=== PATIENT | male | born 1990 | race Caucasian/White ===

== ENCOUNTER 2022-09-24 07:59 | Observation (INO) ==
--- NOTE | 2022-09-24 08:32 | Emergency Department Note ---
Impression & Plan Fracture of finger, middle phalanx, right, open Consultation was obtained from the on-call orthopedist due to the laceration and proximity to the transverse fracture of the middle phalanx. He recommended further exploration. This was performed. It appears to communicate with the fracture site. IV site was established and the patient was given Rocephin 1 g IV, corresponding to his weight. He did have a few sips of coffee this morning, but had no food. He will be taken to the operating room for irrigation and d ebridement as well as pinning. ED Provider Note Chief complaint: Right little finger laceration HPI: This 32-year-old male presents for evaluation of a laceration on his right little finger. He works for [employer] at the [employer]. The patient was releasing a tailgate on a truck that was full of trash. He states the chain holding the tailgate trapped his finger, crushing it, and causing a laceration over the dorsum of the PIP joint. He thinks he felt his finger snap and was visibly deformed. Bleeding was controlled with pressure. He denies any numbness or tingling. There is mild loss of motion. No other complaints. Tetanus is believed to be up-to-date. Pain is 5/10. Hmate-zilm-uhelrbrg. He denies involvement of any other fingers. REVIEW OF SYSTEM: HEENT: No dizziness, visual problems, hearing loss, or tinnitus. There is no difficulty swallowing and no oral lesions are present. LYMPH: No adenopathy. PULMONARY: No cough, shortness of breath, sputum production or hemoptysis. CARDIOVASCULAR: No chest pain, palpitations, shortness of breath or peripheral edema. GASTROINTESTINAL: No diarrhea, constipation, nausea, vomiting, or abdominal pain. GENITOURINARY: No dysuria, frequency, urgency or nocturia. NEUROLOGIC: No weakness, muscle tenderness, epilepsy or history of neurological problems. MUSCULOSKELETAL: No history of joint tenderness/swelling. No history of arthritis or arthralgias. SKIN: No rashes or lesions. PSYCHIATRIC: No history of depression or mental illness. ENDOCRINE: No history of diabetes, thyroid disorders, or abnormal hair growth. Physical Exam: Vitals: Temperature 36.8 respirations 16 pulse 85 O2 sat 99% on room air BP 146/88 General: Well-developed, well-nourished, young white male, in no acute distress. Obvious discomfort. He is sitting on the bed. Alert and oriented. Skin: Warm and dry with good turgor. No rashes. No ecchymosis or erythema. The patient is not diaphoretic. No abrasions. The patient has a 1 cm laceration present over the dorsum of the finger just distal of his PIP joint of the little finger. Musculoskeletal: The patient has slight edema of the little finger. No appreciable deviation or deformity. He has intact motor function to the MCP and PIP joints for flexion and extension. Strength is 5/5 for resisted extension. Intact abduction and adduction. He is able to make almost a full fist. No appreciable malrotation. There is pain with palpation over the middle phalanx. Crepitus is palpable. No pain with palpation of the MCP or DIP joints. No pain with palpation of the other fingers. Neurologic: Gross sensation is intact across the little finger by soft touch. Impression: Right little finger middle phalanx open fracture with 1 cm laceratio n Procedure: Informed oral consent was obtained for exploration. The little finger was prepped with Betadine and draped with a sterile towel. Area was anesthetized using 4 mL 1% plain buffered lidocaine in a digital block. Finger tourniquet was applied and was left in place for approximately 20 minutes. Thorough inspection was performed. Assistance of the orthopedic PA was used along with skin hooks to further evaluate the wound. He was found to have a penetrating tunnel down to the fracture site. Wound was irrigated copiously using Betadine diluted with normal sterile saline under jet spray lavage. Total of 60 mL was used. Wound was covered with sterile gauze. Patient will be taken to the operating room for further irrigation by orthopedics. Please see Dr. Chang's note for final management. Past Med/Surg History Medical History (Updated 09/24/22 @ 20:22 by Dani Linton PA-C) No chronic diseases present Surgical History (Updated 09/24/22 @ 20:12 by Dani Linton PA-C) H/O vasectomy Family History Other Family history non-contributory Social History Smoking Status: Current every day smoker Tobacco Type: Cigarettes Do You Dip or Chew Tobacco: No; Tobacco Cessation Education Requested by Patient: No Hx Alcohol Use: Yes Alcohol type: beer and hard liquor Hx Substance Use: No Preferred Language: Bangladeshi Communication Ability: Effective Stabilizing Machine Operator Required: No Beliefs That Will Affect Care: None Current Living Situation: Spouse and Other Current Living Situation Comment: kids and father Other Information That Helps Us Care for You: No Feels Safe at Home: Yes Safety Concerns: Feels Safe At This Time Assistive Devices: None Allergies Allergies Allergy/AdvReac Type Severity Reaction Status Date / Time No Known Allergies Allergy Verified 06/07/22 23:01 Home Meds Home Medications Medication Instructions Recorded Confirmed No Known Home Medications 09/24/22 09/24/22 Results & Data (ED) Vital Signs Vital Signs - 24 hr 09/24/22 08:03 09/24/22 09:00 09/24/22 10:47 Temperature 36.8 C Temperature Source Temporal Artery Scan Pulse Rate 85 Pulse Rate [Apical] 71 Pulse Rhythm [Apical] Pulse Strength [Apical] Respiratory Rate 16 16 Respiratory Effort / Characteristics Non-Labored Respiratory Depth Normal Respiratory Pattern Blood Pressure 146/88 H Blood Pressure [Left Arm] 131/95 Blood Pressure Mean 107 Blood Pressure Mean [Left Arm] 107 Blood Pressure Position [Left Arm] Pulse Oximetry 99 96 99 Oxygen Delivery Method Room Air Oxygen Flow Rate Sepsis Recent Fever Within 48 Hours No Sepsis New/Unexplained Change in Mental Status No Sepsis Action Taken by Nursing No Action Required 09/24/22 13:00 Temperature 36 C L Temperature Source Temporal Artery Scan Pulse Rate Pulse Rate [Apical] 112 H Pulse Rhythm [Apical] Regular Pulse Strength [Apical] Normal Respiratory Rate 19 Respiratory Effort / Characteristics Non-Labored Spontaneous Respiratory Depth Normal Respiratory Pattern Regular Blood Pressure Blood Pressure [Left Arm] 153/91 H Blood Pressure Mean Blood Pressure Mean [Left Arm] 111 Blood Pressure Position [Left Arm] Semi-fowlers Pulse Oximetry 100 Oxygen Delivery Method Oxymask Oxygen Flow Rate 4 Sepsis Recent Fever Within 48 Hours Sepsis New/Unexplained Change in Mental Status Sepsis Action Taken by Nursing Administered Medications Acetaminophen (Acetaminophen 500 Mg Tab) 1,000 mg PO Q8 JOVANI Stop: 10/24/22 13:59 Last Admin: 09/24/22 15:28 Dose: 1,000 mg Documented By: [facility] Sodium Chloride (Nss 1000ml) 1,000 mls @ 100 mls/hr IV .Q10H JOVANI Stop: 09/25/22 06:00 Last Admin: 09/24/22 15:29 Dose: 100 mls/hr Documented By: ALIA Cefazolin Sodium (Ancef 1000mg) 1,000 mg in 7.5 mls @ 2.5 mls/min IV Q8H JOVANI Stop: 10/01/22 17:59 Last Admin: 09/24/22 18:00 Dose: 2.5 mls/min Documented By: ALIA Nicotine (Nicotine 14 Mg/24 Hr Patch) 14 mg TD QAM JOVANI Stop: 10/24/22 13:14 Last Admin: 09/24/22 15:30 Dose: Not Given Documented By: ALIA Discontinued Medications Bupivacaine HCl (Bupivacaine 0.5 % 5 Mg/1 Ml Mpf 30ml Vial) Confirm Administered Dose 30 ml .ROUTE .STK-MED ONE Stop: 09/24/22 11:08 Last Admin: 09/24/22 12:04 Dose: Not Given Documented By: CRESENCIO Bupivacaine HCl/Epinephrine Bitart (Bupivacaine/Epinephrine 0.5% Mpf 1:200,000 30 Ml Vial) Confirm Administered Dose 30 ml .ROUTE .STK-MED ONE Stop: 09/24/22 11:26 Last Admin: 09/24/22 12:34 Dose: 8 ml Documented By: LENIN Cefazolin Sodium (Cefazolin 330 Mg/Ml 1 Gm Vial) Confirm Administered Dose 990 mg .ROUTE .STK-MED ONE Stop: 09/24/22 11:09 Last Admin: 09/24/22 12:04 Dose: Not Given Documented By: CRESENCIO Ceftriaxone Sodium 1,000 mg/ (Dextrose) 50 mls @ 100 mls/hr IV NOW STA Stop: 09/24/22 09:05 Last Infusion: 09/24/22 10:37 Dose: 0 mls/hr Documented By: Admin: 09/24/22 10:04 Dose: 100 mls/hr Documented By: MICHEAL Lidocaine HCl (Xylocaine 1%/Sod Bicarb 20 Ml Vial) 20 ml INFIL NOW ONE Stop: 09/24/22 08:37 Last Admin: 09/24/22 08:58 Dose: 20 ml Documented By: MICHEAL Lidocaine HCl (Lidocaine 1% Local 20 Ml Vial) Confirm Administered Dose 1 ml .ROUTE .STK-MED ONE Stop: 09/24/22 11:09 Last Admin: 09/24/22 12:04 Dose: Not Given Documented By: [facility] Imaging Data Radiologist's Impression: Finger X-Ray 09/24/22 00:00 INTRAOPERATIVE RADIOGRAPHS CLINICAL HISTORY: Pinning of the right fifth finger. Fluoro time: 51 seconds. Ka,r: 0.46 mGy FINDINGS: 4 spot views of the right fifth finger are correlated with radiographs performed the same day 09/24/2022. Again seen is a horizontal fracture through the mid shaft of the fifth middle phalanx. 2 pins are placed transfixing the fracture with tenriism of near-anatomic alignment. IMPRESSION: Intraoperative images from pinning of the fifth middle phalanx as above. Electronically signed by: Randal Kelly M.D. 09/24/2022 1:20 PM Finger X-Ray 09/24/22 08:17 RIGHT FIFTH FINGER 3 VIEWS CLINICAL HISTORY: Fifth finger injury. FINDINGS: 3 views of the right fifth finger are obtained. No prior studies are available for comparison at the time of dictation. The skeletal structures are well mineralized. There is a mildly displaced horizontal fracture through the midshaft of the fifth middle phalanx. Fragments are offset by up to 2 mm. Overlying soft tissue edema is noted. Fracture does not extend to an articular surface. No additional fracture is seen. The fifth metacarpophalangeal and interphalangeal joints are maintained. IMPRESSION: Fifth middle phalangeal fracture as above. Electronically signed by: Randal Kelly M.D. 09/24/2022 8:37 AM Discharge Plan Visit Data Chief Complaint: Finger Pain Stated Complaint: FINGER LAC ED Provider: Miguelito Vann ED Midlevel Provider: Dani Linton Discharge Problem: Fracture of finger, middle phalanx, right, open Patient Disposition: Admitted As Inpatient Discharge Instructions Interventions: ED Discharge Assessment Last Done: 09/24/22 11:05
[2022-09-24] MEDS ORDERED: XYLOCAINE 1%/SOD BICARB 20 ML VIAL INFIL ONE (08:36)
[2022-09-24] MEDS ORDERED: cefTRIAXone SODIUM 1,000 MG in DEXTROSE 5% AD-VAN 50 ML IV STA (08:36)
--- NOTE | 2022-09-24 08:39 | XRay Report ---
RIGHT FIFTH FINGER 3 VIEWS CLINICAL HISTORY: Fifth finger injury. FINDINGS: 3 views of the right fifth finger are obtained. No prior studies are available for comparis on at the time of dictation. The skeletal structures are well mineralized. There is a mildly displace d horizontal fracture through the midshaft of the fifth middle phalanx. Fragments are offset by up to 2 mm. Overlying soft tissue edema is noted. Fracture does not extend to an articular surface. No add itional fracture is seen. The fifth metacarpophalangeal and interphalangeal joints are maintained. IMPRESSION: Fifth middle phalangeal fracture as above. Electronically signed by: Randal Kelly M.D. 09/24/2022 8:37 AM
--- NOTE | 2022-09-24 10:08 | History & Physical Report ---
Date of Service September 24, 2022 Assessment & Plan (1) Fracture of finger, middle phalanx, right, open: Plan: Discussed and reviewed exam findings with patient and . Patient has an open fracture of the right fifth middle phalanx that reveals an open pathway down to the bone. Patient was examined and counseled on options with Dr. Chang. He discussed surgical intervention versus conservative. Risk were discussed not limited to including infection, bleeding, malunion nonunion, hardware failure, neurovascular damage, wound issues, scarring limitation with motion, embolism, DVT. Due to high risk of infection patient mutually agreed to be taken to the OR for irrigation debride pin right little finger fracture. He has received 1 gram on Rocephin. Patient is to remain n.p.o. I will order a EKG due to history of Gwemw-Jguuuolec-Uzpag syndrome. He was advised to be admitted on our services for observation and most likely being discharged the next day. He will have restrictions for work. He and his verbalized understanding and are in agreement plan. Present on Admission?: Yes History of Present Illness Chief Complaint: laceration to the 5th right digit Primary Care Provider: Rachelle Marley PA-C Patient is a 32-year-old male who is right-hand dominant. He was seen in the ER bedside after being consulted by Dani Linton PA-C. He is seen in the ED for a laceration to the dorsal fifth digit. He explains he was working, [employer], this morning picking up trash. When he placed the tailgate of the truck it came down and smacked the finger. He had a cut and limitations with his range of motion which prompted him to be seen today. He denies any paresthesia or tingling in the finger. He reports that temperature is normal. He had imaging done of the finger that revealed a fracture of the PIP that was displaced. He was examined by Dani Linton PA-C as well as myself and Dr. Mead where it was found that the tendon is intact however there is an open pathway down to the bone. It was discussed surgical options as well as conservative treatment due to high risk of infection due to open fracture patient will be taken to the OR for irrigation debride pin right little finger fracture. 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 He denies any cardiac symptoms or issues since the event. He denies any chest pain, dizziness or shortness of breath. He is up-to-date on tetanus shot and was started on IV antibiotics while in the ED. He denies any history of MRSA or latex allergies. He denies any history of DVT, PE, bleeding disorder. He has the history of a vasectomy, ear surgery. Denies any history of issues with anesthesia. Allergies Allergy/AdvReac Type Severity Reaction Status Date / Time No Known Allergies Allergy Verified 06/07/22 23:01 Home Medications Medication Instructions Recorded Confirmed Type acetaminophen 500 mg tablet 1,000 mg PO DIRECTED PRN 06/07/22 06/07/22 History (Tylenol Extra Strength) PAIN/FEVER famotidine 20 mg tablet 20 mg PO BID #20 tabs 06/07/22 Rx asnwszdiavenr-XF-laohcxgztubuv-guaifen 2 tab PO DIRECTED PRN COLD/FLU 06/07/22 06/07/22 History 5 mg-10 mg-325 mg-200 mg tablet SYMPTOMS (Cold and Flu Severe) sucralfate 100 mg/mL oral 10 ml PO QID #420 mL 06/07/22 Rx suspension (Carafate) Past Med/Surg History Medical History No chronic diseases present Family History Other Family history non-contributory Social History Smoking Status: Never smoker Tobacco Type: Cigarettes Preferred Language: Persian Feels Safe at Home: Yes Review of Systems Review of Systems: All systems reviewed & are unremarkable except as noted in HPI & below Physical Exam Constitutional: well developed and well nourished Eyes: EOM intact bilaterally Respiratory: normal respiratory effort Musculoskeletal: Right fifth digit open laceration over the dorsal aspect over the middle phalanx. Sensation is intact in temperature color is normal. Digital nerve block was performed by Dani Linton. Laceration was explored utilizing aseptic technique. Wound was flushed with Betadine tendons appear to be intact however there is an open pathway down to the fracture. Bone is visible. He is limited with range of motion. He is able to flex and extend all other digits. His wrist range of motion is within normal limits bilaterally left upper extremity he is able to fully flex and extend all digits. Elbow range of motion is normal bilaterally. Radial pulse 3+. Right upper extremity is neurovascular intact. Neurologic: Sensation is intact limited range of motion of the fifth digit on right Psychiatric: Orientation: alert and oriented x 3 Apperance: appropriately dressed and appropriately groomed Eye Contact: good eye contact Results & Data Results & Data Vital Signs (Past 12 Hours) Vital Signs Temp Pulse Resp BP Pulse Ox O2 Del Method 09/24/22 09:00 96 09/24/22 08:03 36.8 C 85 16 146/88 H 99 Room Air Diagnostic Findings Finger X-Ray 09/24/22 08:17 RIGHT FIFTH FINGER 3 VIEWS CLINICAL HISTORY: Fifth finger injury. FINDINGS: 3 views of the right fifth finger are obtained. No prior studies are available for comparison at the time of dictation. The skeletal structures are well mineralized. There is a mildly displaced horizontal fracture through the midshaft of the fifth middle phalanx. Fragments are offset by up to 2 mm. Overlying soft tissue edema is noted. Fracture does not extend to an articular surface. No additional fracture is seen. The fifth metacarpophalangeal and interphalangeal joints are maintained. IMPRESSION: Fifth middle phalangeal fracture as above. Electronically signed by: Randal Kelly M.D. 09/24/2022 8:37 AM
--- NOTE | 2022-09-24 10:13 | History and Physical Report ---
DATE OF SERVICE: 09/24/2022. HISTORY OF PRESENT ILLNESS: Reece is 32. He injured his finger earlier this morning while cleaning up after the [employer] game. Had his finger pinched between a chain and a tailgate. The right bradford le finger. He sustained a laceration. The finger was not deformed. Because of his injury, he came in for further evaluation. He was wearing a glove. No prior history of right little finger injuries of any significance. He has had some prior surgeries without difficulty. No significant medical problems. He has no deepika rgies. Radiographs show a transverse fracture in the midshaft region of the middle phalanx with mild displac ement. On exam, capillary refill and sensation are intact. He has full finger extension and has intact IP j oint, PIP joint extension. He can flex about 2/3-3/4 of composite digital flexion with intact fractu re stability and no rotational abnormality. There is no rotational abnormality with passive range of motion of the wrist using the tenodesis effect. The nail beds are parallel in extension and in flex ion. There is a skin flap with some bleeding. The skin flap was elevated. This is just over the PIP join t. Under the flap is a 5-7 mm transverse laceration, it goes through the skin. There is no visible bone or tendon. IMPRESSION: Right hand little finger middle phalanx fracture with laceration. PLAN: Findings are discussed. I discussed with him the situation. There are various possibilities. The finger could have impinged and cut. I doubt given the findings that the bone actually protrude d through the skin. The fracture itself does not require any operative intervention. The laceration is concerning for the potential of an open fracture. I discussed with him the pros and cons of diff erent treatment options. There is a risk of infection. Discussed treatment in the ER versus OR. Dis cussed pinning, which I do not think is necessary at this time given the findings. It is a stable fr acture, which is well aligned. I think it is reasonable given the findings that this will be irrigat ed in the Emergency Room. He has gotten antibiotics, Rocephin. He will be placed on oral antibiotic s as an outpatient. We will follow up with him in the office. If any signs or symptoms of infection develop, he will return to the ER or contact my office. He will be splinted. Tetanus is up to date . Thorough washout of the wound will be performed and the lacerated area will be evaluated by the ER personnel. He will not be able to work. Job ID: [id number]
[2022-09-24] MEDS ORDERED: ePHEDrine sulfate 50 MG/ML AMP IV PRN (10:52)
[2022-09-24] MEDS ORDERED: ONDANSETRON INJ 2 MG/ML 2 ML VIAL IV PRN ×2 (10:52→13:03)
[2022-09-24] MEDS ORDERED: HYDROmorphone INJ 2 MG/ML SYR/VIAL IV PRN (10:52)
[2022-09-24] MEDS ORDERED: ATROPINE SULFATE 0.1 MG/ML 10ML SYR IV PRN (10:52)
--- NOTE | 2022-09-24 10:53 | Anesthesiology Consultation ---
Date of Service September 24, 2022 Assessment & Plan Chart Review Chart Review: Acceptable Risk for Surgery Consults Requested none ASA ASA2 Proposed Anesthesia Anesthesia Type: General Risk / Benefits Reviewed With: PT / POA / Parent / Guardian, Accepts Plan and Informed Consent Obtained History Surgery Operation Date: 09/24/22 11:00 Proposed Procedures p Incision and Drainage Extremity(Right) - Charles Chang MD Height/Weight Weight: 66.1 kg Allergies Allergy/AdvReac Type Severity Reaction Status Date / Time No Known Allergies Allergy Verified 06/07/22 23:01 Medications Home Medications Medication Instructions Recorded Confirmed Last Taken No Known Home Medications 09/24/22 09/24/22 Unknown NPO Date Last Intake of Fluids: 09/24/22 Time Last Intake of Fluids: 07:45 Last Intake of Fluids Comment: water and coffee Date Last Intake of Solids: 09/23/22 Time Last Intake of Solids: 20:00 Past Medical History Medical History No chronic diseases present Exercise / Class Metabolic Activity II 4-5 Yardwork/Stairs/Walk up hill Past Family History Family History Other Family history non-contributory Past Anesthesia History No Hx of Anesthesia Complications and No Family Hx of Anesthesia Complications History of PONV No Hx of PONV and No Hx of Motion Sickness Social History Smoking Status: Never smoker Physical Exam Vital Signs Last Vital Signs Temp 36.8 C 09/24/22 08:03 Pulse 71 09/24/22 10:47 Resp 16 09/24/22 10:47 BP 131/95 09/24/22 10:47 Pulse Ox 99 09/24/22 10:47 O2 Del Method Room Air 09/24/22 08:03 Constitutional no acute distress ENMT Thyromental Distance: > or= 3.5 Finger Breadths Mallampati Class: II Neck normal visual inspection Respiratory normal respiratory effort; no respiratory distress Auscultation: lungs clear to auscultation bilaterally Cardiovascular Rate/Rhythm: regular rate and regular rhythm Heart Sounds: no murmur Psychiatric Orientation: alert and oriented x 3
[2022-09-24] MEDS ORDERED: MIDAZOLAM HCL 1 MG/ML 2ML VIAL ONE (10:56)
[2022-09-24] MEDS ORDERED: LIDOCAINE 2% MPF LOCAL 5 ML VIAL ONE (10:56)
[2022-09-24] MEDS ORDERED: DEXAMETHASONE SOD INJ 4 MG/ML VIAL ONE (10:56)
[2022-09-24] MEDS ORDERED: fentaNYL citrate PF 100 MCG/2 ML VIAL ONE ×2 (10:56→12:33)
[2022-09-24] MEDS ORDERED: ONDANSETRON INJ 2 MG/ML 2 ML VIAL ONE (10:56)
[2022-09-24] MEDS ORDERED: BUPIVACAINE 0.5 % 5 MG/1 ML MPF 30ML VIAL ONE (11:07)
[2022-09-24] MEDS ORDERED: ceFAZolin 330 MG/ML 1 GM VIAL ONE (11:08)
[2022-09-24] MEDS ORDERED: LIDOCAINE 1% LOCAL 20 ML VIAL ONE (11:08)
[2022-09-24] MEDS ORDERED: BUPIVACAINE/EPINEPHRINE 0.5% MPF 1:200,000 30 ML VIAL ONE (11:25)
--- NOTE | 2022-09-24 12:52 | Operative Report ---
Post Operative Report Pre & Post Diagnosis Operation Date: 09/24/22 11:00 Pre-Op Diagnosis: Right hand little finger middle phalanx fracture with laceration Post-Op Diagnosis: Right hand little finger middle phalanx Grade 1 open fracture I identified the patient and participated in the time-out.: Yes Procedure Operation Date: 09/24/22 11:00 Actual Procedures p Irrigation and Debridement and Pinning Right Little Finger middle phalanx fracture(Right) - Charles Chang MD Surgeon Charles Chang MD Agricultural Pilot Rocio Dhillon physicians educational program assistant no resident or fellow available Estimated Blood Loss 1 Findings Consistent with Post-Op Diagnosis Specimens None Anesthesia Type General Regional Complications none Disposition Accompanied Patient To Recovery: No Disposition: Recovery Room Indications jaja is 32. Injured right little finger cleaning up after [employer] game today. Fracture finger with laceration. Initially I thought that this was not an open fracture. However upon evaluating in the emergency room and exploring the wound it was discovered that the laceration did communicate directly with the fracture site. Therefore operative intervention I&D and pinning was recommended he agreed to proceed. He received a preop dose of Rocephin in the ER and got a preop dose of IV antibiotics here in the OR. Description of Procedure Informed consent. Patient identified. He identified the operative site as the right little finger. I marked with my initials. Preop surgical timeout performed. Preop dose of IV antibiotics given. He was taken to the OR positioned supine on the OR table. Right arm on hand table. Tourniquet on right arm. Not inflated during the case. The arm was prescribed prepped and draped in usual sterile fashion with Betadine. There was a 1 cm transverse laceration overlying the middle phalanx just distal to the PIP joint. DVT prophylaxis not indicated. Prior to starting the procedure 1% lidocaine with epinephrine and half percent plain Marcaine were injected for a digital and field block. Total 8 cc used. Fluoroscopic guidance was utilized throughout the case. The laceration was extended distally 2 cm approximately 1 cm. Full-thickness skin flaps were elevated. The central slip was intact. The lateral bands and the triangular ligament were identified. The tissue between the lateral bands was absent and there was direct communication down to the level of the fracture which was not displaced significantly. The lateral bands were gently retracted and the fracture site was exposed dorsally. There is no communication medially or laterally to the lateral bands. The fracture site was clean and irrigated with 500 cc of sterile saline. The fracture was then rotated and distracted and placed into anatomical alignment confirmed fluoroscopically. I then inserted 2.035 inch K wires. 1 from proximal ulnar to radial distal and another from distal ulnar to proximal radial. They were confirmed to be within the bone and across the fracture site and biplanar fluoroscopy. The fracture remained anatomically aligned and was stable without any rotational abnormality. The pins were cut short outside the skin and Jurgan balls were applied. The wound was again irrigated and the skin was then closed with interrupted 4-0 nylon sutures. The finger was cleaned with wet and dry sponges and a soft sterile dressing was applied Xeroform 4 x 4 soft wrap followed by an AlumaFoam splint. Patient was wake from anesthesia difficulty taken to the cover room in stable condition. There were no specimens or complications. Counts were correct and blood loss is estimated to be 1 cc. At the conclusion of the operation spoke to patient's informed her of my findings postop instructions were given. Patient is unable to work. He was counseled to stop smoking. He will be admitted for 24 hours of IV antibiotics. Ancef 1 g IV every 8. Elevate and ice. I attest to the content of the Intraoperative Record and any orders documented therein. Any exceptions are noted below.
[2022-09-24] MEDS ORDERED: MAGNESIUM HYDROXIDE SUSP 30 ML UDC PO PRN (13:03)
[2022-09-24] MEDS ORDERED: traMADol HCL 50 MG TABLET PO PRN (13:03)
[2022-09-24] MEDS ORDERED: bisacodyL 10 MG SUPP PR PRN (13:03)
[2022-09-24] MEDS ORDERED: oxyCODONE HCL IR 5 MG TAB (IMMEDIATE RELEASE) PO PRN (13:03)
[2022-09-24] MEDS ORDERED: NALOXONE HCL 0.4 MG/1 ML VIAL/CARP IV PRN (13:03)
[2022-09-24] MEDS ORDERED: METOCLOPRAMIDE HCL INJ 5 MG/ML 2 ML VIAL IV PRN (13:03)
[2022-09-24] MEDS ORDERED: SODIUM CHLORIDE 0.9% 1000ML 1,000 ML IV SCH (13:15)
--- NOTE | 2022-09-24 13:22 | Fluoroscopy Report ---
INTRAOPERATIVE RADIOGRAPHS CLINICAL HISTORY: Pinning of the right fifth finger. Fluoro time: 51 seconds. Ka,r: 0.46 mGy FINDINGS: 4 spot views of the right fifth finger are correlated with radiographs performed the same d ay 09/24/2022. Again seen is a horizontal fracture through the mid shaft of the fifth middle phalanx. 2 pins are placed transfixing the fracture with moravian of near-anatomic alignment. IMPRESSION: Intraoperative images from pinning of the fifth middle phalanx as above. Electronically signed by: Randal Kelly M.D. 09/24/2022 1:20 PM
--- NOTE | 2022-09-24 13:38 | Operative Report ---
Post Operative Report Pre & Post Diagnosis Operation Date: 09/24/22 11:00 Pre-Op Diagnosis: Right hand little finger middle phalanx fracture with laceration Post-Op Diagnosis: Right hand little finger middle phalanx fracture with laceration I identified the patient and participated in the time-out.: Yes Procedure Operation Date: 09/24/22 11:00 Actual Procedures p Irrigation and Debridement and Pinning Right Little Finger Fracture(Right) - Charles Chang MD Surgeon Dr. Charles Chang Grinding Machine Tender Rocio Dhillon physicians research assistant member no resident or fellow available Estimated Blood Loss 1 Findings Consistent with Post-Op Diagnosis Specimens none Complications none Disposition Accompanied Patient To Recovery: No Description of Procedure Please refer to Dr. Chang's post operative note for details. I was present during the entire procedure. I assisted with prepping UE, retracting, wound closure and application of dressing. I assited with transfering patient onto liter and he was in stable condition when I left the OR. I attest to the content of the Intraoperative Record and any orders documented therein. Any exceptions are noted below.
[2022-09-24] MEDS ORDERED: KETOROLAC TROMETHAMINE 10 MG TABLET PO PRN (13:40)
--- NOTE | 2022-09-24 14:56 | Anesthesiology Progress Note ---
Date of Service September 24, 2022 Anesthesia Post Procedure Vital Signs Vital Signs: Temp Pulse Pulse Pulse Resp BP BP 09/24/22 14:22 36.8 C 87 18 122/82 09/24/22 13:59 36.6 C 65 18 143/87 H 09/24/22 13:30 36.6 C 73 15 131/88 09/24/22 13:20 90 16 135/92 09/24/22 13:10 98 H 18 143/95 H 09/24/22 13:00 36 C L 112 H 19 153/91 H 09/24/22 10:47 71 16 131/95 09/24/22 09:00 09/24/22 08:03 36.8 C 85 16 146/88 H Pulse Ox O2 Del Method O2 Flow Rate 09/24/22 14:22 100 Room Air 09/24/22 13:59 98 Room Air 09/24/22 13:30 95 Room Air 09/24/22 13:20 96 Room Air 09/24/22 13:10 100 Oxymask 4 09/24/22 13:00 100 Oxymask 4 09/24/22 10:47 99 09/24/22 09:00 96 09/24/22 08:03 99 Room Air Transfer of Care Handoff Completed per policy Notes Mental Status: alert / awake / arousable and participated in evaluation Nausea / Vomiting: adequately controlled Pain: adequately controlled Airway Patency, RR, SpO2: stable & adequate BP & HR: stable & adequate Hydration State: stable & adequate Anesthetic Complications: no major complications apparent and Pt Satisfied with anesthetic care
[2022-09-24] MEDS: ACETAMINOPHEN 500 MG TAB PO SCH ×2 (15:28→21:26)
[2022-09-24] MEDS: NICOTINE 14 MG/24 HR PATCH TD SCH (15:30)
[2022-09-24] MEDS: ceFAZolin 1000MG 1,000 MG/7.5 ML SYR IV SCH (18:00)
[2022-09-24] MEDS ORDERED: DOCUSATE SODIUM 100 MG CAP PO SCH (21:00)
[2022-09-24] MEDS ORDERED: SENNA 8.6 MG TAB PO SCH (21:00)
[2022-09-25] MEDS: ceFAZolin 1000MG 1,000 MG/7.5 ML SYR IV SCH ×2 (01:57→09:16)
[2022-09-25] MEDS: ACETAMINOPHEN 500 MG TAB PO SCH (05:30)
[2022-09-25] MEDS ORDERED: MULTIVITAMIN TAB PO SCH (09:00)
[2022-09-25] MEDS: NICOTINE 14 MG/24 HR PATCH TD SCH (09:16)
--- NOTE | 2022-09-25 10:38 | Progress Notes ---
DATE OF SERVICE: 09/25/2022. Pain well controlled. Up and about. Afebrile, vital signs stable. Dressing adjusted. Finger sligh tly numb. Capillary refill less than 2 seconds. Dressing clean and dry. He has received 3 doses of postoperative IV antibiotics. He is suitable for discharge. He will follow up later this week in [facility] office for wound check and education, ____ cleaning; until then, elevate, ice, keep dressing clean and dry. He is not able to work, but he could potentially go back with limited activity, which we w ill discuss in the future. If there are any problems with severe pain, swelling, fevers or any other issues, call the office or go to the Emergency Room. Job ID: [id number]
--- NOTE | 2022-09-25 17:40 | Electrocardiogram Report ---
Test Reason : Blood Pressure : / mmHG Vent. Rate : 068 BPM Atrial Rate : 068 BPM P-R Int : 124 ms QRS Dur : 100 ms QT Int : 374 ms P-R-T Axes : 033 016 039 degrees QTc Int : 397 ms Normal sinus rhythm with sinus arrhythmia Incomplete right bundle branch block Borderline ECG When compared with ECG of 07-JUN-2022 19:45, (unconfirmed) No significant change was found Confirmed by Bridger Feliciano ([id number]) on 09/25/2022 5:40:08 PM Referred By: REFERRED SELF Confirmed By:Femi Feliciano
--- NOTE | 2022-09-26 13:48 | Discharge Summary ---
Date of Service September 26, 2022 Admission HPI Per Admitting Provider Patient is a 32-year-old male who is right-hand dominant. He was seen in the ER bedside after being consulted by Dani Linton PA-C. He is seen in the ED for a laceration to the dorsal fifth digit. He explains he was working, [facility] [employer], this morning picking up trash. When he placed the tailgate of the truck it came down and smacked the finger. He had a cut and limitations with his range of motion which prompted him to be seen today. He denies any paresthesia or tingling in the finger. He reports that temperature is normal. He had imaging done of the finger that revealed a fracture of the PIP that was displaced. He was examined by Dani Linton PA-C as well as myself and Dr. Mead where it was found that the tendon is intact however there is an open pathway down to the bone. It was discussed surgical options as well as conservative treatment due to high risk of infection due to open fracture patient will be taken to the OR for irrigation debride pin right little finger fracture. 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 He denies any cardiac symptoms or issues since the event. He denies any chest pain, dizziness or shortness of breath. He is up-to-date on tetanus shot and was started on IV antibiotics while in the ED. He denies any history of MRSA or latex allergies. He denies any history of DVT, PE, bleeding disorder. He has the history of a vasectomy, ear surgery. Denies any history of issues with anesthesia. Admission Exam (Per Admitting) Constitutional WD/WN, vitals as above well developed Eyes PERRL, conjunctivae normal, anicteric sclerae ENMT external ear and nose normal, oropharynx normal Musculoskeletal Open area over the dorsal aspect of the right fifth digit. Normal in color and temperature otherwise. Tendons are intact with open area down to mid phalanx fracture. Bone is visible. Sensation is intact over all digits. Able to flex and extend all digits with the exception of the right fifth digit. Radial pulse 3+ Discharge Data Vaccinations Up-to-date on tetanus shot Procedures Performed Operation Date: 09/24/22 11:00 Actual Procedures p Irrigation and Debridement and(Right) - Charles Chang MD s Pinning Right Little Finger Fracture(Right) - Charles Chang MD Hospital Course (1) Fracture of finger, middle phalanx, right, open: Patient was seen in the ED as a consult with Dr. Chang. Patient was found to have a work comp injury that he sustained on 09/23. He had an open wound and at that time at their further examination it was found his tendons were intact however he did have open area down to the fracture. Due to the high risk of infection patient was taken to the OR where he had irrigation and debridement of the right fifth finger with pinning of the middle phalanx of the right fifth digit. He received antibiotics prophylactically with Rocephin while in the ER as well as an operating room. Antibiotics were continued for 24 hours postoperatively. His pain was controlled with oral analgesics postoperatively. He was admitted for observation and overnight this was uneventful. The next mor melchor he was seen and examined. He was found to be medically stable and discharged to follow-up in our outpatient clinic. Discharge Instructions Patient was discharged after receiving 24 hours of antibiotic post surgery. His right fifth digit was examined prior to him leaving. This was neurovascularly intact normal in temperature and capillary refills less than 2 seconds. The digit was rewrapped with gauze in place and covered with Coban. He was advised on keeping this area clean and dry. He may utilize ice over the area x10 minutes with detail over it if needed to control pain. He was advised on keeping it clean and dry. He has 2 pins and is aware. He was advised no work until further notice. He is advised to follow-up in our office or Sunday of this week for a dressing change and instructions on how to clean pins. He was advised if any questions, concerns or change in symptoms to contact the office immediately
== END 2022-09-25 11:21 | disposition home or self-care (01) ==
LOC: ED 07:59 → OR 11:05 → 3E 13:03 → INTOOBSV 13:03